=== PATIENT | male | born 1995 | race Caucasian/White ===

== ENCOUNTER 2018-10-10 20:15 | Emergency (ER) | payer OTHER, SELFPAY ==
[2018-10-10 20:22] VITALS: BP 143/77; PULSE 93; RESP 20; TEMP 36.9; O2SAT 99; BMI 32.8
--- NOTE | 2018-10-10 20:30 | ED.URI ---
HPI - URI/Sore Throat <TWYLA Rushing - Last Filed: 10/10/18 21:33> General Chief Complaint: Upper Respiratory Symptoms Stated Complaint: COUGH 10 DAYS STUFFY NOSE HEAD ACHE SOB Time Seen by Provider: 10/10/18 20:17 Source: patient Mode of arrival: ambulatory Limitations: no limitations History of Present Illness HPI Narrative: Healthy 22-year-old male that is a former smoker for complaint of having nasal congestion and cough over the past 10 days. He does state that last week he did have a fever however the fever has resolved. He does state that he has had a productive cough at times. Positive p.o. intake. No nausea or vomiting. He has pain into his chest wall with cough. Otherwise no other chest pain. He denies any other concerns or complaints at this time. Related Data Previous Rx's Medication Instructions Recorded benzonatate [Tessalon Perles] 100 mg PO QID PRN #20 cap 10/10/18 Allergies Allergy/AdvReac Type Severity Reaction Status Date / Time No Known Drug Allergies Allergy Verified 10/10/18 20:46 Review of Systems <TWYLA Rushing - Last Filed: 10/10/18 21:33> Constitutional Denies chills, Denies fever(s), Denies lethargy and Denies weakness Eyes Denies change in vision, Denies eye discharge, Denies irritation and Denies loss of vision ENT Ears, Nose, Mouth, and Throat: Reports nasal congestion and Denies throat swelling Cardiovascular Denies chest pain, Denies irregular heart rhythm, Denies lightheadedness, Denies palpitations and Denies orthopnea Respiratory Reports cough and Denies wheezing Gastrointestinal Gastrointestinal: Denies abdominal pain, Denies change in bowel habits, Denies diarrhea, Denies nausea and Denies vomiting Genitourinary Denies hematuria, Denies flank pain, Denies urinary incontinence and Denies urinary urgency Musculoskeletal Denies back pain, Denies muscle weakness, Denies numbness and Denies tingling Integumentary/Breasts Denies pruritus, Denies erythema, Denies rash and Denies wounds Neurologic Denies confusion, Denies loss of vision, Denies numbness, Denies tingling and Denies weakness Psychiatric Denies anxiety, Denies confusion, Denies depression, Denies homicidal ideation and Denies suicidal ideation Endocrine Denies palpitations Hematologic/Lymphatic Denies easy bruising Allergic/Immunologic Denies urticaria, Denies throat swelling and Denies wheezing Exam <TWYLA Rushing - Last Filed: 10/10/18 21:33> Initial Vital Signs Initial Vital Signs: Vital Signs Temperature 98.4 F 10/10/18 20:22 Pulse Rate 93 H 10/10/18 20:22 Respiratory Rate 20 10/10/18 20:22 Blood Pressure 143/77 H 10/10/18 20:22 Pulse Oximetry 99 10/10/18 20:22 Const General: cooperative and well developed Nutritional Appearance: well nourished Orientation: alert, awake, oriented x3 and not confused [facility] Mouth: oral mucosae normal, oropharynx normal and moist mucous membranes Eyes Conjunctivae: conjunctivae normal Sclera: sclerae normal Pupils: PERRL EOM: EOM intact bilaterally Resp Effort & Inspection: normal respiratory effort, able to speak in complete sentences, no respiratory distress and no use of accessory muscles Auscultation: clear to auscultation bilaterally, no rales, no rhonchi and no wheezes Cardio Rate: regular rate Rhythm: regular rhythm Heart Sounds: no click, no gallops, no murmurs and no rubs Skin General: no rashes or lesions noted, No jaundice and No petechiae Neuro General: alert, oriented x3, gait normal and no focal motor deficits Speech: speech normal <Ria Scanlon DO - Last Filed: 10/10/18 22:50> Initial Vital Signs Initial Vital Signs: Vital Signs Temperature 98.4 F 10/10/18 20:22 Pulse Rate 93 H 10/10/18 20:22 Respiratory Rate 20 10/10/18 20:22 Blood Pressure 143/77 H 10/10/18 20:22 Pulse Oximetry 99 10/10/18 20:22 Course <TWYLA Rushing - Last Filed: 10/10/18 21:33> Orders Ordered: ED Orders 10/10/18 20:34 XR chest 2V Stat Vital Signs - 8 hr 10/10/18 20:22 Temperature 98.4 F Pulse Rate 93 H Respiratory Rate 20 Blood Pressure 143/77 H Pulse Oximetry 99 <Ria Scanlon DO - Last Filed: 10/10/18 22:50> Orders Ordered: ED Orders 10/10/18 20:34 XR chest 2V Stat Vital Signs - 8 hr 10/10/18 20:22 Temperature 98.4 F Pulse Rate 93 H Respiratory Rate 20 Blood Pressure 143/77 H Pulse Oximetry 99 [facility] - URI/Sore Throat <TWYLA Rushing - Last Filed: 10/10/18 21:33> Imaging Data Chest x-ray: Radiologist's impression: [address] [place] [id number] XRay Report Signed Patient: GÉNESIS HEREDIA LMR#: [id number] : 1995Acct:[id number] Age/Sex: MDate of Service: 10/10/18 Loc: ED Accession Number: [id number] Procedure: XR chest 2V Ordering Provider: Christopher Mason PROCEDURE: XR CHEST 2V INDICATIONS: Cough and congestion for last 10 days TECHNIQUE: 2 views of the chest were acquired. COMPARISON: None. FINDINGS: Surgical changes and devices: None. Lungs and pleura: No pleural effusions or pneumothorax. Lungs are clear. Mediastinum: Mediastinal contours are normal. Heart size is normal. Bones and chest wall: No suspicious bony abnormalities. Soft tissues appear unremarkable. IMPRESSION: No acute cardiopulmonary disease Dictated by: Criselda White M.D. on 10/10/2018 at 20:54 Approved by: Criselda White M.D. on 10/10/2018 at 20:55 [facility] Narrative Medical decision making narrative: Chest x-ray was obtained and was negative for signs of pneumonia. Signs and symptoms presents as a viral upper respiratory infection/bronchitis plenty of fluids and rest. [id number] Tylenol or Motrin as needed for any discomfort. Saline irrigation to nasal passages/hot showers to help with congestion. He is prescribed Tessalon Perles to help with cough. Follow up with primary care provider. Return emergency room for any worsening symptoms. Discharge Plan Departure Patient Disposition: Home Clinical Impression: Bronchitis, Upper respiratory infection Discharge Date/Time: 10/10/18 21:22 Interventions: ED Discharge Assessment Last Done: 10/10/18 21:20 Instructions: DI for Acute Bronchitis Activity Restrictions/Additional Instructions: Chest x-ray was obtained was negative for any acute findings. Signs symptoms presents as viral upper respiratory infection and bronchitis. Bronchitis will take some time to resolve on its own. Supportive care with plenty of rest and fluids. Saline irrigation and hot showers to help with nasal congestion. Tessalon Perles are prescribed to help with cost use as directed. Follow up with primary care provider. [id number] Tylenol or ibuprofen as needed for any discomfort. Return emergency room for any worsening symptoms. Prescriptions: New benzonatate [Tessalon Perles] 100 mg capsule 100 mg PO QID PRN (Reason: cough) Qty: 20 RF: 0 Referrals: [facility] [Provider Group] <Ria Scanlon DO - Last Filed: 10/10/18 22:50> Cosign ED Attending Cosignature Attestation: I was immediately available in the department for consultation. This documentation has been reviewed and I agree with assessment and plan. Supervised by Ria Scanlon DO
--- NOTE | 2018-10-10 20:34 | DI.RAD.S_ITS ---
PROCEDURE: XR CHEST 2V INDICATIONS: Cough and congestion for last 10 days TECHNIQUE: 2 views of the chest were acquired. COMPARISON: None. FINDINGS: Surgical changes and devices: None. Lungs and pleura: No pleural effusions or pneumothorax. Lungs are clear. Mediastinum: Mediastinal contours are normal. Heart size is normal. Bones and chest wall: No suspicious bony abnormalities. Soft tissues appear unremarkable. IMPRESSION: No acute cardiopulmonary disease Dictated by: Criselda White M.D. on 10/10/2018 at 20:54 Approved by: Criselda White M.D. on 10/10/2018 at 20:55
--- NOTE | 2018-10-10 21:09 | ED_ITS ---
HPI - URI/Sore Throat <TWYLA Rushing - Last Filed: 10/10/18 21:33> General Chief Complaint: Upper Respiratory Symptoms Stated Complaint: COUGH 10 DAYS STUFFY NOSE HEAD ACHE SOB Time Seen by Provider: 10/10/18 20:17 Source: patient Mode of arrival: ambulatory Limitations: no limitations History of Present Illness HPI Narrative: Healthy 22-year-old male that is a former smoker for complaint of having nasal congestion and cough over the past 10 days. He does state that last week he did have a fever however the fever has resolved. He does state that he has had a productive cough at times. Positive p.o. intake. No nausea or vomiting. He has pain into his chest wall with cough. Otherwise no other chest pain. He denies any other concerns or complaints at this time. Related Data Previous Rx's Medication Instructions Recorded benzonatate [Tessalon Perles] 100 mg PO QID PRN #20 cap 10/10/18 Allergies Allergy/AdvReac Type Severity Reaction Status Date / Time No Known Drug Allergies Allergy Verified 10/10/18 20:46 Review of Systems <TWYLA Rushing - Last Filed: 10/10/18 21:33> Constitutional Denies chills, Denies fever(s), Denies lethargy and Denies weakness Eyes Denies change in vision, Denies eye discharge, Denies irritation and Denies loss of vision ENT Ears, Nose, Mouth, and Throat: Reports nasal congestion and Denies throat swelling Cardiovascular Denies chest pain, Denies irregular heart rhythm, Denies lightheadedness, Denies palpitations and Denies orthopnea Respiratory Reports cough and Denies wheezing Gastrointestinal Gastrointestinal: Denies abdominal pain, Denies change in bowel habits, Denies diarrhea, Denies nausea and Denies vomiting Genitourinary Denies hematuria, Denies flank pain, Denies urinary incontinence and Denies urinary urgency Musculoskeletal Denies back pain, Denies muscle weakness, Denies numbness and Denies tingling Integumentary/Breasts Denies pruritus, Denies erythema, Denies rash and Denies wounds Neurologic Denies confusion, Denies loss of vision, Denies numbness, Denies tingling and Denies weakness Psychiatric Denies anxiety, Denies confusion, Denies depression, Denies homicidal ideation and Denies suicidal ideation Endocrine Denies palpitations Hematologic/Lymphatic Denies easy bruising Allergic/Immunologic Denies urticaria, Denies throat swelling and Denies wheezing Exam <TWYLA Rushing - Last Filed: 10/10/18 21:33> Initial Vital Signs Initial Vital Signs: Vital Signs Temperature 98.4 F 10/10/18 20:22 Pulse Rate 93 H 10/10/18 20:22 Respiratory Rate 20 10/10/18 20:22 Blood Pressure 143/77 H 10/10/18 20:22 Pulse Oximetry 99 10/10/18 20:22 Const General: cooperative and well developed Nutritional Appearance: well nourished Orientation: alert, awake, oriented x3 and not confused [facility] Mouth: oral mucosae normal, oropharynx normal and moist mucous membranes Eyes Conjunctivae: conjunctivae normal Sclera: sclerae normal Pupils: PERRL EOM: EOM intact bilaterally Resp Effort & Inspection: normal respiratory effort, able to speak in complete sentences, no respiratory distress and no use of accessory muscles Auscultation: clear to auscultation bilaterally, no rales, no rhonchi and no wheezes Cardio Rate: regular rate Rhythm: regular rhythm Heart Sounds: no click, no gallops, no murmurs and no rubs Skin General: no rashes or lesions noted, No jaundice and No petechiae Neuro General: alert, oriented x3, gait normal and no focal motor deficits Speech: speech normal <Ria Scanlon DO - Last Filed: 10/10/18 22:50> Initial Vital Signs Initial Vital Signs: Vital Signs Temperature 98.4 F 10/10/18 20:22 Pulse Rate 93 H 10/10/18 20:22 Respiratory Rate 20 10/10/18 20:22 Blood Pressure 143/77 H 10/10/18 20:22 Pulse Oximetry 99 10/10/18 20:22 Course <TWYLA Rushing - Last Filed: 10/10/18 21:33> Orders Ordered: ED Orders 10/10/18 20:34 XR chest 2V Stat Vital Signs - 8 hr 10/10/18 20:22 Temperature 98.4 F Pulse Rate 93 H Respiratory Rate 20 Blood Pressure 143/77 H Pulse Oximetry 99 <Ria Scanlon DO - Last Filed: 10/10/18 22:50> Orders Ordered: ED Orders 10/10/18 20:34 XR chest 2V Stat Vital Signs - 8 hr 10/10/18 20:22 Temperature 98.4 F Pulse Rate 93 H Respiratory Rate 20 Blood Pressure 143/77 H Pulse Oximetry 99 [facility] - URI/Sore Throat <TWYLA Rushing - Last Filed: 10/10/18 21:33> Imaging Data Chest x-ray: Radiologist's impression: [address] [place] [id number] XRay Report Signed Patient: GÉNESIS HEREDIA LMR#: [id number] : 1995Acct:[id number] Age/Sex: MDate of Service: 10/10/18 Loc: ED Accession Number: [id number] Procedure: XR chest 2V Ordering Provider: Christopher Maosn PROCEDURE: XR CHEST 2V INDICATIONS: Cough and congestion for last 10 days TECHNIQUE: 2 views of the chest were acquired. COMPARISON: None. FINDINGS: Surgical changes and devices: None. Lungs and pleura: No pleural effusions or pneumothorax. Lungs are clear. Mediastinum: Mediastinal contours are normal. Heart size is normal. Bones and chest wall: No suspicious bony abnormalities. Soft tissues appear unremarkable. IMPRESSION: No acute cardiopulmonary disease Dictated by: Criselda White M.D. on 10/10/2018 at 20:54 Approved by: Criselda White M.D. on 10/10/2018 at 20:55 [facility] Narrative Medical decision making narrative: Chest x-ray was obtained and was negative for signs of pneumonia. Signs and symptoms presents as a viral upper respiratory infection/bronchitis plenty of fluids and rest. [id number] Tylenol or Motrin as needed for any discomfort. Saline irrigation to nasal passages/hot showers to help with congestion. He is prescribed Tessalon Perles to help with cough. Follow up with primary care provider. Return emergency room for any worsening symptoms. Discharge Plan Departure Patient Disposition: Home Clinical Impression: Bronchitis, Upper respiratory infection Discharge Date/Time: 10/10/18 21:22 Interventions: ED Discharge Assessment Last Done: 10/10/18 21:20 Instructions: DI for Acute Bronchitis Activity Restrictions/Additional Instructions: Chest x-ray was obtained was negative for any acute findings. Signs symptoms presents as viral upper respiratory infection and bronchitis. Bronchitis will take some time to resolve on its own. Supportive care with plenty of rest and fluids. Saline irrigation and hot showers to help with nasal congestion. Tessalon Perles are prescribed to help with cost use as directed. Follow up with primary care provider. [id number] Tylenol or ibuprofen as needed for any discomfort. Return emergency room for any worsening symptoms. Prescriptions: New benzonatate [Tessalon Perles] 100 mg capsule 100 mg PO QID PRN (Reason: cough) Qty: 20 RF: 0 Referrals: [facility] [Provider Group] <Ria Scanlon DO - Last Filed: 10/10/18 22:50> Cosign ED Attending Cosignature Attestation: I was immediately available in the department for consultation. This documentation has been reviewed and I agree with assessment and plan. Supervised by Ria Scanlon DO
== END 2018-10-10 21:22 | disposition home or self-care (01) ==
LOC: ED 21:14
PROVIDERS: Emergency Provider Nurse Practitioner Family
DX: J40 Bronchitis, not specified as acute or chronic (principal); J06.9 Acute upper respiratory infection, unspecified
CPT/HCPCS: 71046; 99282; 99283